=== PATIENT | female | born 1970 | race Caucasian/White ===

== ENCOUNTER 2020-02-19 05:36 | Emergency (ER) | payer OTHER ==
[~2020-02-19] VITALS: Ht 162.6 cm; Wt 94.8 kg
[2020-02-19 05:41] VITALS: BP 133/75
--- NOTE | 2020-02-19 05:47 | NUR ---
PT AMBULATED TO BED 04 WITH STEADY GAIT.
[2020-02-19] MEDS ORDERED: ONDANSETRON 4 MG/2 ML VIAL IVP ONE (06:20)
[2020-02-19] MEDS ORDERED: NACL 0.9% 1,000 ML IV ONE (06:20)
[2020-02-19] MEDS ORDERED: PANTOPRAZOLE 40 MG INJ VIAL IVP ONE (06:20)
[2020-02-19] MEDS ORDERED: MORPHINE SULFATE 4 MG/ML SYR IVP ONE (06:20)
--- NOTE | 2020-02-19 06:34 | NUR ---
IV STARTED, LABS DRAWN AND TAKEN TO LAB.
[2020-02-19 06:44] LABS: BASOPHILS # (AUTO) 0.1 K/uL (0.00-0.22); BASOPHILS % (AUTO) 0.4 % (0.0-2.0); EOSINOPHILS # (AUTO) 0.2 K/uL (0-0.4); HEMATOCRIT 37.9 % (36-48); HEMOGLOBIN 11.6 g/dL (12.0-16.0); LYMPHOCYTES # (AUTO) 2.7 K/uL (2.5-16.5); LYMPHOCYTES % (AUTO) 18.5 % (20.5-51.1); MEAN CORPUSCULAR HEMOGLOBIN 22 pg (27-31); MEAN CORPUSCULAR HGB CONC 31 g/dL (33-37); MEAN CORPUSCULAR VOLUME 72.4 fL (80-94); MONOCYTES # (AUTO) 1.1 K/uL (0.8-1.0); MONOCYTES % (AUTO) 7.3 % (1.7-9.3); NEUTROPHILS # (AUTO) 10.6 K/uL (1.8-7.7); NEUTROPHILS % (AUTO) 72.8 % (42.2-75.2); PLATELET COUNT (AUTO) 420 K/uL (140-450); RED BLOOD CELL COUNT(AUTO) 5.24 MIL/uL (4.20-5.40); RED CELL DISTRIBUTION WIDTH 15.1 % (11.6-13.7); WHITE BLOOD COUNT (AUTO) 14.6 K/uL (4.8-10.8)
[2020-02-19 06:57] LABS: ALBUMIN 3.2 g/dL (3.4-5.0); ANION GAP 8.1 (8-16); CARBON DIOXIDE 34.4 mmol/L (21-32); CREATININE 0.8 mg/dL (0.6-1.3); POTASSIUM 3.5 mmol/L (3.5-5.1); TOTAL BILIRUBIN 0.2 mg/dL (0.0-1.0)
--- NOTE | 2020-02-19 07:08 | NUR ---
chio swab collected via [facility] route and sent with slab inspector.
--- NOTE | 2020-02-19 07:20 | NUR ---
RECEIVED REPORT FROM KRISTEL WILSON
--- NOTE | 2020-02-19 07:25 | NUR ---
TO CT VIA [facility]
--- NOTE | 2020-02-19 07:38 | NUR ---
RETURNED FROM CT
[2020-02-19] MEDS ORDERED: KETOROLAC 30 MG/ML VIAL IVP ONE (08:55)
[2020-02-19 09:15] VITALS: BP 143/70
--- NOTE | 2020-02-19 09:19 | NUR ---
Patient discharged with v/s stable. Written and verbal after care instructions given and explained. Patient alert, oriented and verbalized understanding of instructions. Ambulatory with steady gait. All questions addressed prior to discharge. ID band removed. Patient advised to follow up with PMD. Rx of TLENOL AND PEPCID given. Patient educated on indication of medication including possible reaction and side effects. Opportunity to ask questions provided and answered. COPIES OF EXAM RESULTS IN POSESSION
--- NOTE | 2020-02-19 09:19 | NUR ---
PAIN NOW RATED 0/10. PT READY FOR DISCHARGE. IV D/C'D CATHETER INTACT. HAS BEEN TAKING PO FLUIDS AND EATING CRACKERS TOLERATED WELL
--- NOTE | 2020-02-23 10:45 | NUR ---
late entry -- NS completed 02/18.
== END 2020-02-19 09:19 | disposition home or self-care (01) ==
LOC: MED 05:36
DX: K80.50 Calculus of bile duct without cholangitis or cholecystitis without obstruction (principal)
CPT/HCPCS: 36415; 74177; 80053; 81002; 81025; 82948; 83605; 83690; 84484; 85025; 87426; 93005; 96361; 96374; 96375; 99285; C9113; J1885; J2270; J2405; J7030; Q9967

== ENCOUNTER 2020-03-09 11:24 | Inpatient (IN) | payer OTHER, SELFPAY ==
[~2020-03-09] VITALS: Ht 157.5 cm; Wt 93.9 kg
[2020-03-09 12:04] VITALS: BP 131/65
[2020-03-09] MEDS ORDERED: DEXAMETHASONE 10 MG/ML VIAL PO STA (14:46)
[2020-03-09] MEDS ORDERED: KETOROLAC 30 MG/ML VIAL IM STA (14:46)
[2020-03-09 15:19] LABS: BASOPHILS % (AUTO) 0.3 % (0.0-2.0); EOSINOPHILS % (AUTO) 0.3 % (0.0-4.0); HEMATOCRIT 34.9 % (36-48); HEMOGLOBIN 10.6 g/dL (12.0-16.0); LYMPHOCYTES # (AUTO) 1.9 K/uL (2.5-16.5); LYMPHOCYTES % (AUTO) 22.9 % (20.5-51.1); MEAN CORPUSCULAR HEMOGLOBIN 22 pg (27-31); MEAN CORPUSCULAR HGB CONC 30 g/dL (33-37); MEAN CORPUSCULAR VOLUME 72.7 fL (80-94); MONOCYTES # (AUTO) 1.3 K/uL (0.8-1.0); MONOCYTES % (AUTO) 15.3 % (1.7-9.3); NEUTROPHILS % (AUTO) 61.2 % (42.2-75.2); PLATELET COUNT (AUTO) 260 K/uL (140-450); RED CELL DISTRIBUTION WIDTH 15.8 % (11.6-13.7); WHITE BLOOD COUNT (AUTO) 8.2 K/uL (4.8-10.8)
[2020-03-09] MEDS ORDERED: KETOROLAC 30 MG/ML VIAL ONE (16:05)
[2020-03-09] MEDS ORDERED: DEXAMETHASONE 10 MG/ML VIAL ONE (16:05)
[2020-03-09 16:17] LABS: APPEARANCE,URINE CLEAR (CLEAR); BILIRUBIN,URINE NEGATIVE (NEGATIVE); BLOOD, URINE NEGATIVE (NEGATIVE); COLOR,URINE YELLOW (YELLOW); LEUKOCYTE ESTERASE ,URINE NEGATIVE (NEGATIVE); NITRITE, URINE NEGATIVE (NEGATIVE); UGLUCOSE 3+ (NEGATIVE)
[2020-03-09 16:43] LABS: ALBUMIN 3.2 g/dL (3.4-5.0); ANION GAP 13.2 (8-16); CARBON DIOXIDE 24.9 mmol/L (21-32); CREATININE 0.9 mg/dL (0.6-1.3); POTASSIUM 4.1 mmol/L (3.5-5.1); TOTAL BILIRUBIN 0.1 mg/dL (0.0-1.0)
[2020-03-09] MEDS ORDERED: PROMETH/CODEINE 6.25-10MG/5ML 5 ML UDC PO STA (17:34)
[2020-03-09] MEDS ORDERED: ONDANSETRON 4 MG/2 ML VIAL IVP PRN (18:10)
[2020-03-09] MEDS ORDERED: PROMETHAZINE DM 6.25/15MG-5ML ORASYR PO PRN (18:10)
[2020-03-09] MEDS ORDERED: ACETAMINOPHEN 325 MG TAB PO PRN (18:10)
[2020-03-09] MEDS ORDERED: AZITHROMYCIN 500 MG in DEXTROSE 5% 250 ML IV SCH (19:00)
[2020-03-09] MEDS ORDERED: ENOXAPARIN 40 MG/0.4 ML SYR SUBQ SCH (19:00)
[2020-03-09] MEDS ORDERED: AZITHROMYCIN 500 MG INJ VIAL IV ONE (19:21)
[2020-03-09] MEDS ORDERED: INSULIN LISPRO SLIDING SCALE 100 UNITS/ML VIAL SUBQ PRN (21:00)
[2020-03-09] MEDS: NACL 0.9% 1,000 ML IV SCH (21:49)
[2020-03-10 01:00] VITALS: BP 136/75
[2020-03-10 04:00] VITALS: BP 126/56
[2020-03-10 07:28] LABS: ALBUMIN 2.9 g/dL (3.4-5.0); CARBON DIOXIDE 23.4 mmol/L (21-32); CREATININE 0.9 mg/dL (0.6-1.3); POTASSIUM 4.4 mmol/L (3.5-5.1); TOTAL BILIRUBIN 0.2 mg/dL (0.0-1.0)
[2020-03-10 07:39] LABS: PROTHROMBIN TIME 9.8 secs (10.8-13.4)
[2020-03-10 08:00] VITALS: BP 136/69
[2020-03-10] MEDS ORDERED: ENOXAPARIN 40 MG/0.4 ML SYR SUBQ SCH (09:00)
[2020-03-10] MEDS: BENZONATATE 100 MG CAPLF PO SCH ×3 (10:04→17:34)
[2020-03-10] MEDS: NACL 0.9% 1,000 ML IV SCH (10:20)
[2020-03-10 12:00] VITALS: BP 139/78
[2020-03-10 17:13] LABS: MAGNESIUM 2.4 mg/dL (1.8-2.4)
== END 2020-03-10 18:25 | disposition home or self-care (01) | DRG 137 ==
LOC: MED 11:24 → MTU 18:26
PROVIDERS: ADMIT Hospitalist; ATTEND Hospitalist
DX: U07.1 COVID-19 (principal); I10 Essential (primary) hypertension; Z88.0 Allergy status to penicillin; R10.9 Unspecified abdominal pain; M25.519 Pain in unspecified shoulder
CPT/HCPCS: 36415; 71045; 76705; 80053; 81003; 82728; 82948; 83690; 83735; 84484; 85025; 85379; 85610; 85730; 86140; 87081; 93005; 96372; 99285; J0456; J1100; J1650; J1815; J1885; J7060; U0003

== ENCOUNTER 2020-09-07 15:29 | Emergency (ER) | payer OTHER, SELFPAY ==
[~2020-09-07] VITALS: Ht 162.6 cm; Wt 90.7 kg
[2020-09-07 15:33] VITALS: BP 119/57
--- NOTE | 2020-09-07 15:52 | NUR ---
PT TAKEN VIA W/C TO BED 4.
--- NOTE | 2020-09-07 15:55 | NUR ---
REFERRED FROM PCP FOR SHOES /BOOTS S/P TWISTED & DISTAL TIBIA FRACTURE &AVALSION OF THE MEDIAL MALLEOLUSFRACTURE X 1 MONTH. PMH: GOUT, DM, HTN
--- NOTE | 2020-09-07 15:56 | NUR ---
Dr. Terry is evaluating the patient at bedside.
[2020-09-07 16:17] VITALS: BP 119/57
--- NOTE | 2020-09-07 16:18 | NUR ---
Patient discharged with v/s stable. Written and verbal after care instructions given and explained. Patient alert, oriented and verbalized understanding of instructions. Ambulatory with steady gait. All questions addressed prior to discharge. ID band removed. Patient advised to follow up with PMD. Opportunity to ask questions provided and answered.
== END 2020-09-07 16:18 | disposition home or self-care (01) ==
LOC: MED 15:29
DX: S82.291A Other fracture of shaft of right tibia, initial encounter for closed fracture (principal); S82.491A Other fracture of shaft of right fibula, initial encounter for closed fracture; E11.9 Type 2 diabetes mellitus without complications; I10 Essential (primary) hypertension; Z88.0 Allergy status to penicillin; X58.XXXA Exposure to other specified factors, initial encounter; Y93.89 Activity, other specified; Y92.89 Other specified places as the place of occurrence of the external cause; Y99.8 Other external cause status
CPT/HCPCS: 29515; 99283